=== PATIENT | male | born 1965 | race Caucasian/White ===

== ENCOUNTER → 2022-02-14 12:13 | Outpatient (BNVA) | payer BC, SELFPAY | PROVIDERS: Visit Provider Nurse Practitioner Family | DX: N40.1 Benign prostatic hyperplasia with lower urinary tract symptoms (principal); N48.1 Balanitis | CPT/HCPCS: 81003; 84153 ==

== ENCOUNTER 2022-08-25 11:39 | Emergency (ER) | payer OTHER, BC, SELFPAY ==
[2022-08-25 11:40] VITALS: BP 164/99; PULSE 82; RESP 18; TEMP 36.6; O2SAT 94; BMI 50.1
[2022-08-25 11:52] VITALS: BP 164/99; PULSE 83; RESP 17; O2SAT 97
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
[2022-08-25 12:10] LABS: Basophils # 0.1 10^3/uL (0.0-0.1); Basophils % 0.7 %; Eosinophils # 0.3 10^3/uL (0.0-0.8); Eosinophils % 1.8 %; Hematocrit 49.5 % (42.0-52.0); Hemoglobin 16.3 g/dL (11.7-16.6); Lymphocytes # 2.2 10^3/uL (0.8-4.8); Lymphocytes % 13.8 %; Mean Corpuscular HGB Conc 32.9 g/dL (30.0-36.0); Mean Corpuscular Volume 87.9 fl (80-94); Mean Platelet Volume 8.9 fL (7.4-10.4); Monocytes # 1.2 10^3/uL (0.2-0.9); Monocytes % 7.5 %; Neutrophils # 11.98 10^3/uL (1.8-7.7); Neutrophils % 74.7 %; Nucleated Red Blood Cells % 0 %; Platelet Count 278 10^3/cmm (130-400); Red Blood Count 5.63 10^6/uL (4.1-5.3); Red Cell Distribution Width 13.5 % (12.1-15.1); White Blood Count 16.1 10^3/uL (4.0-10.0)
[2022-08-25 12:20] LABS: Alanine Aminotransferase 41 U/L (0-41); Alkaline Phosphatase 80 U/L (40-130); Aspartate Amino Transferase 42 U/L (0-40); Blood Urea Nitrogen 15 mg/dL (6-20); Calcium 9.2 mg/dL (8.5-10.5); Carbon Dioxide 24 mmol/L (22-29); Chloride 97 mmol/L (98-107); Glomerular Filtration Rate 117.1 mL/min (90-130); Glucose 187 mg/dL (65-115); Osmolality Calculated 286 mOsm/kg (285-295); Sodium 135 mmol/L (136-145); Total Bilirubin 0.3 mg/dL (0.15-1.2)
[2022-08-25 12:27] LABS: Anion Gap 18.4 (5-19); Potassium 4.4 mmol/L (3.5-5.1)
[2022-08-25] MEDS: iohexol 350 mg/mL 500 mL Btl (per mL) IV (12:27)
[2022-08-25 12:30] VITALS: BP 170/97; PULSE 77; RESP 17; O2SAT 96
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
[2022-08-25] MEDS: tranexamic acid 1,000 mg/10mL SDV 1000 MG IV (13:53)
[2022-08-25] MEDS: sodium chloride 0.9% 100 ML 400 ML IV (13:54)
[2022-08-25 13:55] VITALS: BP 168/95; PULSE 81; RESP 20; O2SAT 97
== END 2022-08-25 14:27 | disposition short-term general hospital (02) ==
PROVIDERS: Emergency Provider Family Medicine
DX: S36.892A Contusion of other intra-abdominal organs, initial encounter (principal); S31.603A Unspecified open wound of abdominal wall, right lower quadrant with penetration into peritoneal cavity, initial encounter; V47.5XXA Car driver injured in collision with fixed or stationary object in traffic accident, initial encounter
CPT/HCPCS: 70450; 71260; 72125; 74177; 80053; 85025; 86850; 86900; 96374; 99285; J7050; Q9967

== ENCOUNTER 2022-11-09 08:41 | Outpatient (CLI) | payer OTHER, SELFPAY ==
--- NOTE | 2022-11-09 08:47 | MR_ITS ---
WS: [id number] MRI LUMBAR SPINE NONCONTRAST TECHNIQUE: Sagittal T1, T2 and STIR imaging. Axial T1 and T2 imaging. CLINICAL INFORMATION: STRAIN OF MUSCLE COMPARISON: None. FINDINGS: Mild lumbar curve. No acute compression. Mild disc bulge L5-S1. Tiny annular fissure. Small RIGHT per icentral protrusion at T11-T12 with slight effacement of the ventral thecal sac. L1-L2: Mild facet arthropathy. Spinal canal and foramen are patent. L2-L3: No significant disc bulging. Mild facet arthropathy. Spinal canal and foramen are patent. L3-L4: Small LEFT foraminal protrusion impinges the exiting LEFT L3 nerve root with mild LEFT foramin al narrowing. Recommend correlation LEFT L3 nerve root symptoms. RIGHT foramen is patent. Mild facet arthropathy. L4-L5: Mild annular bulging. Moderate facet arthropathy. RIGHT eccentric disc bulging with mild RIGHT foraminal narrowing. LEFT foramen is patent. Slight anterolisthesis L4 on L5. L5-S1: Small shallow LEFT pericentral protrusion with slight impingement on traversing LEFT S1 nerve root. Mild LEFT and no significant RIGHT foraminal narrowing. Mild facet arthropathy. Shallow central disc protrusions visualized in the mid and lower thoracic spine. Visualized pelvic bony structures: Normal. Paravertebral soft tissues: Normal. MR/MR lumbar spine wo con* [id number] IMPRESSION: 1. Mild lumbar curve. No acute compression. No high-grade central canal stenos is. 2. Shallow small LEFT pericentral protrusion L5-S1 slightly impinges the LEFT S1 nerve root. Mild LEFT L5-S1 foraminal narrowing slightly contacts the exitin g LEFT L5 nerve root. Recommend correlation LEFT L5 and S1 nerve root symptoms. 3. Small LEFT foraminal protrusion L3-L4 impinges the exiting L3 nerve root wi th mild/moderate LEFT foraminal narrowing. Recommend correlation LEFT L3 nerve root symptoms. 4. RIGHT eccentric disc bulging L4-L5 with mild RIGHT foraminal narrowing cont acts the exiting RIGHT L4 nerve root. 5. Moderate facet arthropathy L3-L4 and L4-L5.
== END 2022-11-09 08:42 | disposition home or self-care (01) ==
LOC: RAD 08:43
PROVIDERS: PCP Family Medicine; Visit Provider Family Medicine
DX: S39.012A Strain of muscle, fascia and tendon of lower back, initial encounter (principal); X58.XXXA Exposure to other specified factors, initial encounter; M43.8X6 Other specified deforming dorsopathies, lumbar region; M51.26 Other intervertebral disc displacement, lumbar region; M51.36 Other intervertebral disc degeneration, lumbar region; M47.816 Spondylosis without myelopathy or radiculopathy, lumbar region
CPT/HCPCS: 72148